=== PATIENT | female | born 1990 | race Caucasian/White ===

== ENCOUNTER 2018-11-26 05:51 | Inpatient (IN) | payer BC ==
[2018-11-26] MEDS ORDERED: Nalbuphine 20 MG/ML 1 ML Syringe IVPUSH PRN (06:18)
[2018-11-26] MEDS ORDERED: Ampicillin 2 GM in Sodium Chloride 0.9% 100 ML IV ONE (06:18)
[2018-11-26] MEDS ORDERED: Ondansetron 4 MG/2 ML SDV IVPUSH PRN ×2 (06:18→07:20)
[2018-11-26] MEDS ORDERED: Sodium Chloride 0.9% 10 ML Syringe FLUSH PRN (06:18)
[2018-11-26] MEDS ORDERED: Ampicillin 2 GM AdvVial IV ONE (06:21)
[2018-11-26] MEDS ORDERED: Sodium Chloride 0.9% 100 ML ONE (06:21)
--- NOTE | 2018-11-26 06:26 | PCM.LDHP ---
L&D History of Present Illness - General Date of Service: 11/26/18 Admit Problem/Dx: Patient Status Order with Admit Dx/Problem 11/26/18 06:18 Patient Status [ADT] Routine Admission Diagnosis/Problem Admission Diagnosis/Problem Normal labor Source of Information: Patient History Limitations: Reports: No Limitations - History of Present Illness Introduction:: Patient is a 28 y/o at 39 3/7 wks who presents in labor. Contractions started at about 0200 this AM. thinks on the drive down she maybe had a little leaking of fluid. - Related Data Allergies/Adverse Reactions: Allergies Allergy/AdvReac Type Severity Reaction Status Date / Time No Known Allergies Allergy Verified 08/23/14 05:00 Home Medications: Home Meds Vitamins. 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 : 4 Para: 1 LMP (Approximate): Hematologic History: Reports: Anticoagulation Therapy (On prophylactic Lovenox this ), Other (See Below) (DVT during 2014 ) - Past Surgical History HEENT Surgical History: Reports: Oral Surgery (tooth extraction) Female Surgical History: Reports: D&C Social & Family History - Tobacco Use Smoking Status *Q: Never Smoker - Alcohol Use Alcohol Use History: No - Recreational Drug Use Recreational Drug Use: No H&P Review of Systems - Review of Systems: Review Of Systems: See Below General: Reports: No Symptoms Pulmonary: Reports: No Symptoms Cardiovascular: Reports: No Symptoms Gastrointestinal: Reports: No Symptoms Genitourinary: Reports: No Symptoms Musculoskeletal: Reports: No Symptoms Neurological: Reports: No Symptoms L&D Exam - Exam Exam: See Below - OB Specific Contraction Intensity: Moderate Movement: Active Heart Tones: Present Heart Tones per Min: 135 Heart Rate (FHR) Variability: Moderate (6-25 bmp) Presentation: Vertex - Olguin Score Olguin Score Cervix Position: Posterior Olguin Score Consistency: Soft Olguin Score Effacement: 51-70% Olguin Score Dilation: 3-4 cm Olguin Score 's Station: -1 ,0 Olguin Score Total: 8 - Exam General: Alert, Oriented, Cooperative Lungs: Clear to Auscultation, Normal Respiratory Effort Cardiovascular: Regular Rate, Regular Rhythm GI/Abdominal Exam: Soft, Non-Tender Genitourinary: Normal external exam Extremities: Normal Inspection Skin: Warm, Dry, Intact - Problem List (1) 39 weeks gestation of SNOMED Code(s): 65520891 ICD Code: Z3A.39 - 39 WEEKS GESTATION OF Status: Acute Current Visit: Yes (2) History of deep vein thrombosis (DVT) during SNOMED Code(s): 39943105 ICD Code: Z86.718 - PERSONAL HISTORY OF OTHER VENOUS THROMBOSIS AND EMBOLISM ; Z87.59 - PERSONAL HISTORY OF COMP OF PREG, CHLDBRTH AND THE PUERP Status: Acute Current Visit: Yes (3) GBS (group B Streptococcus carrier), +RV culture, currently SNOMED Code(s): 1725847564221, 977886926, 1524508946173 ICD Code: O99.820 - STREPTOCOCCUS B CARRIER STATE COMPLICATING Status: Acute Current Visit: Yes Problem List Initiated/Reviewed/Updated: Yes Orders Last 24hrs: Active Orders 24 hr Category Date Time Status Patient Status [ADT] Routine ADT 11/26/18 06:18 Ordered Activity as Tolerated [RC] PFP Care 11/26/18 06:18 Ordered Communication Order [RC] ASDIRECTED Care 11/26/18 06:18 Ordered Heart Tones [RC] ASDIRECTED Care 11/26/18 06:18 Ordered Non Stress Test [RC] PER UNIT ROUTINE Care 11/26/18 06:18 Ordered Notify Provider [RC] PFP Care 11/26/18 06:18 Ordered Notify Provider [RC] PRN Care 11/26/18 06:18 Ordered Peripheral IV Care [RC] . DIRECTED Care 11/26/18 06:18 Ordered Vital Signs [RC] PER UNIT ROUTINE Care 11/26/18 06:18 Ordered Regular Diet [DIET] Diet 11/26/18 Breakfast Ordered CBC W/O DIFF,HEMOGRAM [HEME] Routine Lab 11/26/18 06:18 Ordered INR,PT,PROTHROMBIN TIME [COAG] Routine Lab 11/26/18 06:18 Ordered PTT,PARTIAL THROMBOPLSTIN TIME [COAG] Routine Lab 11/26/18 06:18 Ordered RAPID PLASMA REAGIN,RPR [CHEM] Routine Lab 11/26/18 06:18 Ordered TYPE AND SCREEN [BBK] Routine Lab 11/26/18 06:18 Ordered Ampicillin 1 gm Med 11/26/18 06:30 Ordered Sodium Chloride 0.9% [Normal Saline] 100 ml IV Q4H Ampicillin 2 gm Med 11/26/18 06:18 Ordered Sodium Chloride 0.9% [Normal Saline] 100 ml IV ONETIME Lactated Ringers [Ringers, Lactated] 1,000 ml Med 11/26/18 06:30 Ordered IV ASDIRECTED Nalbuphine [Nubain] Med 11/26/18 06:18 Ordered 10 mg IVPUSH Q2H PRN Ondansetron [Zofran] Med 11/26/18 06:18 Ordered 4 mg IVPUSH Q4H PRN Oxytocin/Lactated Ringers [Pitocin in LR 10 Units/1,000 Med 11/26/18 06:30 Ordered ML] 10 unit in 1,000 ml IV .CONTINUOUS Sodium Chloride 0.9% [Saline Flush] Med 11/26/18 06:18 Ordered 10 ml FLUSH ASDIRECTED PRN Electronic Heart Tones Ext w TOCO [WOMSER] Oth 11/26/18 06:18 Ordered Routine Electronic Heart Tones Internal [WOMSER] Per Unit Oth 11/26/18 06:18 Ordered Routine Peripheral IV Insertion Adult [OM.PC] Routine Oth 11/26/18 06:18 Ordered Resuscitation Status Routine Resus Stat 11/26/18 06:18 Ordered Medication Orders Ampicillin Sodium 2 gm/ Sodium (Chloride) 100 mls @ 200 mls/hr IV ONETIME ONE Stop: 11/26/18 06:47 Ampicillin Sodium 1 gm/ Sodium (Chloride) 100 mls @ 200 mls/hr IV Q4H IVORY Lactated Ringer's (Ringers, Lactated) 1,000 mls @ 100 mls/hr IV ASDIRECTED IVORY Oxytocin/Lactated Ringer's (Pitocin In Lr 10 Units/1,000 Ml) 10 unit in 1,000 mls @ 500 mls/hr IV .CONTINUOUS IVORY Nalbuphine HCl (Nubain) 10 mg IVPUSH Q2H PRN PRN Reason: pain Ondansetron HCl (Zofran) 4 mg IVPUSH Q4H PRN PRN Reason: Nausea/Vomiting Sodium Chloride (Saline Flush) 10 ml FLUSH ASDIRECTED PRN PRN Reason: Keep Vein Open Assessment/Plan Comment:: 28 y/o at 39 3/7 wks presents in labor * Labs on admission including PT/PTT * On prophylactic dose of Lovenox this (40 mg subcutaneous daily). Last injection at 2044 yesterday. Would be candidate for regional anesthesia 12 hours after last injection if desired * GBS positive will start ampicillin * Pain management per patient preference * Anticipate
[2018-11-26] MEDS ORDERED: Oxytocin/Lactated Ringers 10 UNIT/1,000 ML BAG IV SCH (06:30)
[2018-11-26] MEDS ORDERED: Lactated Ringers 1,000 ML IV SCH (06:30)
[2018-11-26] MEDS ORDERED: fentaNYL/Bupivacaine-NS 2 MCG/ML-0.125%/PF 100 ML Bag EPIDUR PRN (07:20)
[2018-11-26] MEDS ORDERED: fentaNYL 100 MCG/2 ML SDV EPIDUR PRN (07:20)
[2018-11-26] MEDS ORDERED: ePHEDrine 50 MG/ML SDV IVPUSH PRN (07:20)
--- NOTE | 2018-11-26 07:26 | PCM.PREANE ---
Preanesthetic Assessment - Anesthesia/Transfusion/Family Hx Anesthesia History: Prior Anesthesia Without Reaction Family History of Anesthesia Reaction: No Transfusion History: No Prior Transfusion(s) Intubation History: Unknown - Review of Systems Other: Reports: None (Currently on lovenox for past history of DVT with prior : last injection last evening at 2044.), Easy Bleeding, Easy Bruising - Physical Assessment NPO Status Date: 11/26/18 Pulse: 71 O2 Sat by Pulse Oximetry: 98 Respiratory Rate: 17 Blood Pressure: 107/56 Vital Signs: Last Vital Signs Temp Pulse Resp 17 11/26/18 06:13 BP 107/55 L 11/26/18 06:13 Pulse Ox 98 11/26/18 06:13 ASA Class: 2 Mental Status: Alert & Oriented x3 - Lab Values: Laboratory Last Values WBC 11.81 K/mm3 (3.98-10.04) H 11/26/18 06:30 RBC 4.09 M/mm3 (3.98-5.22) 11/26/18 06:30 Hgb 12.2 gm/L (11.2-15.7) 11/26/18 06:30 Hct 35.9 % (34.1-44.9) 11/26/18 06:30 MCV 87.8 fl (79.4-94.8) 11/26/18 06:30 MCH 29.8 pg (25.6-32.2) 11/26/18 06:30 MCHC 34.0 g/dl (32.2-35.5) 11/26/18 06:30 RDW Std Deviation 43.4 fL (36.4-46.3) 11/26/18 06:30 Plt Count 216 K/mm3 (182-369) 11/26/18 06:30 MPV 9.5 fl (9.4-12.3) 11/26/18 06:30 PT 9.6 SECONDS (9.5-12.1) 11/26/18 06:30 INR < 0.93 11/26/18 06:30 APTT 24 SECONDS (24-31) 11/26/18 06:30 Above labs reviewed and noted and within acceptable ranges to proceed with epidural if desired. 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 1 tab PO DAILY 05/01/14 [History] Enoxaparin [Lovenox] 120 mg SUBCUT DAILY #14 syringe 08/25/14 [Rx] - CURRENT (IN HOUSE) MEDS Current Meds: Current Medications Ephedrine Sulfate (Ephedrine Sulfate) 5 mg IVPUSH ASDIRECTED PRN PRN Reason: Hypotension Stop: 11/26/18 23:00 Fentanyl (Sublimaze) 100 mcg EPIDUR Q3H PRN PRN Reason: Pain Stop: 11/26/18 23:00 Fentanyl/Bupivacaine HCl (Sjimwuuj-Mxttf-Rv 2 Mcg/Ml-0.125%) 100 ml EPIDUR ASDIRECTED PRN PRN Reason: Pain Stop: 11/26/18 23:00 Ampicillin Sodium 1 gm/ Sodium (Chloride) 100 mls @ 200 mls/hr IV Q4H IVORY Lactated Ringer's (Ringers, Lactated) 1,000 mls @ 100 mls/hr IV ASDIRECTED IVORY Last Admin: 11/26/18 06:39 Dose: 100 mls/hr Oxytocin/Lactated Ringer's (Pitocin In Lr 10 Units/1,000 Ml) 10 unit in 1,000 mls @ 500 mls/hr IV .CONTINUOUS IVORY Phenylephrine HCl 1 mg/ Sodium (Chloride) 10.1 mls @ 1 mls/sec IV TITRATE IVORY; Protocol Stop: 11/26/18 23:00 Nalbuphine HCl (Nubain) 10 mg IVPUSH Q2H PRN PRN Reason: pain Ondansetron HCl (Zofran) 4 mg IVPUSH Q4H PRN PRN Reason: Nausea/Vomiting Ondansetron HCl (Zofran) 4 mg IVPUSH ONETIME PRN PRN Reason: Nausea/Vomiting Sodium Chloride (Saline Flush) 10 ml FLUSH ASDIRECTED PRN PRN Reason: Keep Vein Open Discontinued Medications Ampicillin Sodium (Ampicillin) Confirm Administered Dose 2 gm IV .[employer] ONE Stop: 11/26/18 06:22 Last Admin: 11/26/18 06:41 Dose: Not Given Ampicillin Sodium 2 gm/ Sodium (Chloride) 100 mls @ 200 mls/hr IV ONETIME ONE Stop: 11/26/18 06:47 Last Admin: 11/26/18 06:39 Dose: 200 mls/hr Sodium Chloride (Normal Saline) Confirm Administered Dose 100 mls @ as directed .ROUTE .[employer] ONE Stop: 11/26/18 06:22 Last Admin: 11/26/18 06:41 Dose: Not Given
[2018-11-26] MEDS ORDERED: Phenylephrine 1 MG in Sodium Chloride 0.9% 10 ML IV SCH (07:30)
[2018-11-26] MEDS ORDERED: Ampicillin 1 GM in Sodium Chloride 0.9% 100 ML IV SCH ×2 (10:30→18:30)
--- NOTE | 2018-11-26 12:13 | PCM.DEL ---
L & D Note - General Info Date of Service: 11/26/18 - Delivery Note Labor: Spontaneous Delivery Outcome: Livebirth Delivery Method: Spontaneous Vaginal Delivery-Single Delivery Mode: Spontaneous Presentation: Left Occiput Anterior (JOANIE) Nuchal Cord: None Anesthesia Type: None Amniotic Fluid Description: Clear Episiotomy Type: None Laceration: 1st Degree, Perineal Suture type: Vicryl Suture size: 2-0 Placenta: Intact, Spontaneous Cord: 3 Vessels Estimated Blood Loss: 300 Resuscitation Needed: Yes [place]: Bulb Syringe, Stimulated, Warmed, Sarah Used, Warmer Used Delivery Comments (Free Text/Narrative):: Patient found to be complete and began pushing. With maternal pushing effort head delivered from an JOANIE presentation. No nuchal cord present. With gentle downward traction the shoulders and body delivered. Infant placed on maternal abdomen. Cord clamped and cut. Cord blood obtained. Placenta allowed time to separate and expelled intact. Inspection of the perineum showed a small 1st degree laceration which was repaired with a 2-0 vicryl - General Info Date of Service: 11/27/18 - Patient Data Vitals - Most Recent: Last Vital Signs Temp Pulse 71 11/26/18 07:25 Resp 17 11/26/18 07:25 BP 107/56 L 11/26/18 07:25 Pulse Ox 98 11/26/18 07:25 Weight - Most Recent: 84.323 kg I&O - Last 24 Hours: Intake & Output 11/25/18 11/26/18 11/26/18 22:59 06:59 14:59 Intake Total 120 Balance 120 Lab Results Last 24 Hours: Laboratory Results - last 24 hr 11/26/18 11/26/18 11/26/18 Range/Units 06:30 06:30 06:30 WBC 11.81 H (3.98-10.04) K/mm3 RBC 4.09 (3.98-5.22) M/mm3 Hgb 12.2 (11.2-15.7) gm/L Hct 35.9 (34.1-44.9) % MCV 87.8 (79.4-94.8) fl MCH 29.8 (25.6-32.2) pg MCHC 34.0 (32.2-35.5) g/dl RDW Std Deviation 43.4 (36.4-46.3) fL Plt Count 216 (182-369) K/mm3 MPV 9.5 (9.4-12.3) fl PT 9.6 (9.5-12.1) SECONDS INR < 0.93 APTT 24 (24-31) SECONDS Blood Type B POSITIVE Gel Antibody Screen Negative Med Orders - Current: Current Medications Ephedrine Sulfate (Ephedrine Sulfate) 5 mg IVPUSH ASDIRECTED PRN PRN Reason: Hypotension Stop: 11/26/18 23:00 Fentanyl (Sublimaze) 100 mcg EPIDUR Q3H PRN PRN Reason: Pain Stop: 11/26/18 23:00 Fentanyl/Bupivacaine HCl (Duktoyje-Smjmj-Uh 2 Mcg/Ml-0.125%) 100 ml EPIDUR ASDIRECTED PRN PRN Reason: Pain Stop: 11/26/18 23:00 Ampicillin Sodium 1 gm/ Sodium (Chloride) 100 mls @ 200 mls/hr IV Q4H IVORY Stop: 11/26/18 15:30 Last Admin: 11/26/18 10:17 Dose: 200 mls/hr Lactated Ringer's (Ringers, Lactated) 1,000 mls @ 100 mls/hr IV ASDIRECTED IVORY Last Admin: 11/26/18 06:39 Dose: 100 mls/hr Oxytocin/Lactated Ringer's (Pitocin In Lr 10 Units/1,000 Ml) 10 unit in 1,000 mls @ 500 mls/hr IV .CONTINUOUS IVORY Phenylephrine HCl 1 mg/ Sodium (Chloride) 10.1 mls @ 1 mls/sec IV TITRATE IVORY; Protocol Stop: 11/26/18 23:00 Ampicillin Sodium 1 gm/ Sodium (Chloride) 100 mls @ 200 mls/hr IV Q4H IVORY Nalbuphine HCl (Nubain) 10 mg IVPUSH Q2H PRN PRN Reason: pain Last Admin: 11/26/18 10:14 Dose: 10 mg Ondansetron HCl (Zofran) 4 mg IVPUSH Q4H PRN PRN Reason: Nausea/Vomiting Ondansetron HCl (Zofran) 4 mg IVPUSH ONETIME PRN PRN Reason: Nausea/Vomiting Stop: 11/26/18 23:00 Sodium Chloride (Saline Flush) 10 ml FLUSH ASDIRECTED PRN PRN Reason: Keep Vein Open Discontinued Medications Ampicillin Sodium (Ampicillin) Confirm Administered Dose 2 gm IV .STK-MED ONE Stop: 11/26/18 06:22 Last Admin: 11/26/18 06:41 Dose: Not Given Ampicillin Sodium 2 gm/ Sodium (Chloride) 100 mls @ 200 mls/hr IV ONETIME ONE Stop: 11/26/18 06:47 Last Admin: 11/26/18 06:39 Dose: 200 mls/hr Sodium Chloride (Normal Saline) Confirm Administered Dose 100 mls @ as directed .ROUTE .STK-MED ONE Stop: 11/26/18 06:22 Last Admin: 11/26/18 06:41 Dose: Not Given - Problem List & Annotations (1) 39 weeks gestation of SNOMED Code(s): 52405313 Code(s): Z3A.39 - 39 WEEKS GESTATION OF Status: Acute Current Visit: Yes (2) History of deep vein thrombosis (DVT) during SNOMED Code(s): 81122351 Code(s): Z86.718 - PERSONAL HISTORY OF OTHER VENOUS THROMBOSIS AND EMBOLISM; Z87.59 - PERSONAL HISTORY OF COMP OF PREG, CHLDBRTH AND THE PUERP Status: Acute Current Visit: Yes (3) GBS (group B Streptococcus carrier), +RV culture, currently SNOMED Code(s): 7226634633746, 791503381, 6839165948610 Code(s): O99.820 - STREPTOCOCCUS B CARRIER STATE COMPLICATING Status: Acute Current Visit: Yes (4) Vaginal delivery SNOMED Code(s): 649805160 Code(s): O80 - ENCOUNTER FOR FULL-TERM UNCOMPLICATED DELIVERY Status: Acute Current Visit: No - Problem List Review Problem List Initiated/Reviewed/Updated: Yes - My Orders Last 24 Hours: My Active Orders 11/26/18 06:18 Patient Status [ADT] Routine Activity as Tolerated [RC] PFP Communication Order [RC] ASDIRECTED Heart Tones [RC] ASDIRECTED Non Stress Test [RC] PER UNIT ROUTINE Notify Provider [RC] PFP Notify Provider [RC] PRN Vital Signs [RC] PER UNIT ROUTINE Nalbuphine [Nubain] 10 mg IVPUSH Q2H PRN Ondansetron [Zofran] 4 mg IVPUSH Q4H PRN Sodium Chloride 0.9% [Saline Flush] 10 ml FLUSH ASDIRECTED PRN Electronic Heart Tones Ext w TOCO [WOMSER] Routine Electronic Heart Tones Internal [WOMSER] Per Unit Routine Peripheral IV Insertion Adult [OM.PC] Routine Resuscitation Status Routine 11/26/18 06:30 RAPID PLASMA REAGIN,RPR [CHEM] Routine Lactated Ringers [Ringers, Lactated] 1,000 ml IV ASDIRECTED Oxytocin/Lactated Ringers [Pitocin in LR 10 Units/1,000 ML] 10 unit in 1,000 ml IV .CONTINUOUS 11/26/18 09:52 PATIENT RETYPE [BBK] Routine 11/26/18 10:30 Ampicillin 1 gm Sodium Chloride 0.9% [Normal Saline] 100 ml IV Q4H 11/26/18 18:30 Ampicillin 1 gm Sodium Chloride 0.9% [Normal Saline] 100 ml IV Q4H 11/26/18 Breakfast Regular Diet [DIET] - Assessment Assessment:: 28 y/o G4 now P2022 PPD#0 from at 39 3/7 wks - Plan Plan:: * Routine cares * Encourage breast feeding * Will start prophylactic lovenox tomorrow AM * Discharge home in 1-2 days
[2018-11-26] MEDS ORDERED: Witch Hazel Medicated Pads 40/Jar TOP PRN (12:46)
[2018-11-26] MEDS ORDERED: Docusate Sodium 100 MG Cap PO PRN (12:46)
[2018-11-26] MEDS ORDERED: Acetaminophen 325 MG Tab PO PRN (12:46)
[2018-11-26] MEDS ORDERED: Lanolin 100% Cream 7 GM Tube TOP PRN (12:46)
[2018-11-26] MEDS ORDERED: Benzocaine/Menthol 20%-0.5% Spray 56 GM Canister TOP PRN (12:46)
[2018-11-26] MEDS: Ibuprofen 600 MG Tab PO PRN ×2 (16:23→21:56)
[2018-11-27] MEDS: Ibuprofen 600 MG Tab PO PRN ×2 (03:44→10:44)
--- NOTE | 2018-11-27 07:18 | PCM.PNPP ---
- General Info Date of Service: 11/27/18 Functional Status: Reports: Pain Controlled, Tolerating Diet, Ambulating, Urinating - Review of Systems General: Reports: No Symptoms Pulmonary: Reports: No Symptoms Cardiovascular: Reports: No Symptoms Gastrointestinal: Reports: No Symptoms Genitourinary: Reports: No Symptoms Musculoskeletal: Reports: No Symptoms - Patient Data Vital Signs - Most Recent: Last Vital Signs Temp 36.5 C 11/27/18 03:42 Pulse 69 11/27/18 03:42 Resp 15 11/27/18 03:42 BP 110/53 L 11/27/18 03:42 Pulse Ox 99 11/27/18 03:42 Weight - Most Recent: 84.323 kg Lab Results - Last 24 Hours: Laboratory Results - last 24 hr 11/26/18 11/26/18 11/26/18 Range/Units 06:30 06:30 06:30 PT 9.6 (9.5-12.1) SECONDS INR < 0.93 APTT 24 (24-31) SECONDS RPR Non-reactive (NONREACTIVE) Blood Type B POSITIVE Gel Antibody Screen Negative Med Orders - Current: Current Medications Acetaminophen (Tylenol) 650 mg PO Q4H PRN PRN Reason: mild pain or fever Benzocaine/Menthol (Dermoplast Pain Relief [place]) 0 gm TOP ASDIRECTED PRN PRN Reason: Perineal Comfort Measure Last Admin: 11/26/18 13:47 Dose: 1 can Docusate Sodium (Colace) 100 mg PO BID PRN PRN Reason: Constipation Emollient Ointment (Lansinoh Hpa) 0 gm TOP ASDIRECTED PRN PRN Reason: Sore Nipples Enoxaparin Sodium (Lovenox) 40 mg SUBCUT ONETIME ONE Stop: 11/27/18 08:01 Ibuprofen (Motrin) 600 mg PO Q6H PRN PRN Reason: Mild pain or fever Last Admin: 11/27/18 03:44 Dose: 600 mg Witch Becki (Tucks) 1 pad TOP ASDIRECTED PRN PRN Reason: Perineal Comfort Measure Last Admin: 11/26/18 13:47 Dose: 1 container Discontinued Medications Ampicillin Sodium (Ampicillin) Confirm Administered Dose 2 gm IV .STK-MED ONE Stop: 11/26/18 06:22 Last Admin: 11/26/18 06:41 Dose: Not Given Ephedrine Sulfate (Ephedrine Sulfate) 5 mg IVPUSH ASDIRECTED PRN PRN Reason: Hypotension Stop: 11/26/18 23:00 Fentanyl (Sublimaze) 100 mcg EPIDUR Q3H PRN PRN Reason: Pain Stop: 11/26/18 23:00 Fentanyl/Bupivacaine HCl (Urxoxfed-Fujpb-Yn 2 Mcg/Ml-0.125%) 100 ml EPIDUR ASDIRECTED PRN PRN Reason: Pain Stop: 11/26/18 23:00 Ampicillin Sodium 2 gm/ Sodium (Chloride) 100 mls @ 200 mls/hr IV ONETIME ONE Stop: 11/26/18 06:47 Last Admin: 11/26/18 06:39 Dose: 200 mls/hr Ampicillin Sodium 1 gm/ Sodium (Chloride) 100 mls @ 200 mls/hr IV Q4H IVORY Stop: 11/26/18 15:30 Last Admin: 11/26/18 10:17 Dose: 200 mls/hr Lactated Ringer's (Ringers, Lactated) 1,000 mls @ 100 mls/hr IV ASDIRECTED IVORY Last Admin: 11/26/18 06:39 Dose: 100 mls/hr Oxytocin/Lactated Ringer's (Pitocin In Lr 10 Units/1,000 Ml) 10 unit in 1,000 mls @ 500 mls/hr IV .CONTINUOUS IVORY Last Admin: 11/26/18 12:15 Dose: 500 mls/hr Sodium Chloride (Normal Saline) Confirm Administered Dose 100 mls @ as directed .ROUTE .STK-MED ONE Stop: 11/26/18 06:22 Last Admin: 11/26/18 06:41 Dose: Not Given Phenylephrine HCl 1 mg/ Sodium (Chloride) 10.1 mls @ 1 mls/sec IV TITRATE IVORY; Protocol Stop: 11/26/18 23:00 Ampicillin Sodium 1 gm/ Sodium (Chloride) 100 mls @ 200 mls/hr IV Q4H IVORY Nalbuphine HCl (Nubain) 10 mg IVPUSH Q2H PRN PRN Reason: pain Last Admin: 11/26/18 10:14 Dose: 10 mg Ondansetron HCl (Zofran) 4 mg IVPUSH Q4H PRN PRN Reason: Nausea/Vomiting Ondansetron HCl (Zofran) 4 mg IVPUSH ONETIME PRN PRN Reason: Nausea/Vomiting Stop: 11/26/18 23:00 Sodium Chloride (Saline Flush) 10 ml FLUSH ASDIRECTED PRN PRN Reason: Keep Vein Open - Interaction Infant Disposition, : [place] in Room with Family Infant Interaction: Holding Feeding: Breastfed ; Nursed Well Support Person: - Recovery Exam Fundal Tone: Firm Fundal Level: 1 Fingerbreadths Below Umbilicus Fundal Placement: Midline Lochia Amount: Small Lochia Color: Rubra/Red Perineum Description: Other (see below) Other Perinuem Description: 1st degree with repair Episiotomy/Laceration: Approximated Bladder Status: Voiding Urinary Elimination: Voided - Exam General: Alert, Oriented, Cooperative GI/Abdominal Exam: Soft, Non-Tender Extremities: Normal Inspection Skin: Warm, Dry, Intact - Problem List & Annotations (1) 39 weeks gestation of SNOMED Code(s): 40423641 Code(s): Z3A.39 - 39 WEEKS GESTATION OF Status: Acute Current Visit: Yes (2) History of deep vein thrombosis (DVT) during SNOMED Code(s): 17180460 Code(s): Z86.718 - PERSONAL HISTORY OF OTHER VENOUS THROMBOSIS AND EMBOLISM; Z87.59 - PERSONAL HISTORY OF COMP OF PREG, CHLDBRTH AND THE PUERP Status: Acute Current Visit: Yes (3) GBS (group B Streptococcus carrier), +RV culture, currently SNOMED Code(s): 3583078757690, 363244428, 6335050220401 Code(s): O99.820 - STREPTOCOCCUS B CARRIER STATE COMPLICATING Status: Acute Current Visit: Yes (4) Vaginal delivery SNOMED Code(s): 829695109 Code(s): O80 - ENCOUNTER FOR FULL-TERM UNCOMPLICATED DELIVERY Status: Acute Current Visit: No - Problem List Review Problem List Initiated/Reviewed/Updated: Yes - My Orders Last 24 Hours: My Active Orders 11/26/18 12:46 Activity as Tolerated [RC] PER UNIT ROUTINE Vital Signs [RC] 09,15,21,03 Acetaminophen [Tylenol] 650 mg PO Q4H PRN Benzocaine/Menthol [Dermoplast Pain Relief [place]] See Dose Instructions TOP ASDIRECTED PRN Docusate Sodium [Colace] 100 mg PO BID PRN Ibuprofen [Motrin] 600 mg PO Q6H PRN Lanolin [Lansinoh HPA] See Dose Instructions TOP ASDIRECTED PRN Witch Becki [Tucks] 1 pad TOP ASDIRECTED PRN Assess Lochia [WOMSER] Per Unit Routine Assess Uterine Involution [WOMSER] Per Unit Routine Breast Pump [WOMSER] Per Unit Routine Heat Therapy [OM.PC] PRN Ice Therapy [OM.PC] Per Unit Routine Perineal Care [OM.PC] Per Unit Routine Peripheral IV Discontinue [OM.PC] Routine Sitz Bath [OM.PC] Per Unit Routine 11/26/18 Dinner Regular Diet [DIET] 11/27/18 08:00 Enoxaparin [Lovenox] 40 mg SUBCUT ONETIME ONE 11/27/18 12:46 Heat Therapy [OM.PC] PRN - Assessment Assessment:: PPD#1 - Plan Plan:: * Routine cares * Breast feeding * Lovenox to start this AM and continue 6 weeks * Discharge today per patient preference
[2018-11-27] MEDS ORDERED: Enoxaparin 40 MG/0.4 ML Syringe SUBCUT ONE (08:00)
[2018-11-27 08:47] VITALS: BP 108/69
--- NOTE | 2018-11-27 10:19 | PCM.DCSUM1 ---
Discharge Summary - Discharge Data Discharge Date: 11/27/18 Discharge Disposition: Home, Self-Care 01 Condition: Good - Discharge Diagnosis/Problem(s) (1) 39 weeks gestation of SNOMED Code(s): 22045055 ICD Code: Z3A.39 - 39 WEEKS GESTATION OF Status: Acute Current Visit: Yes (2) History of deep vein thrombosis (DVT) during SNOMED Code(s): 61312542 ICD Code: Z86.718 - PERSONAL HISTORY OF OTHER VENOUS THROMBOSIS AND EMBOLISM ; Z87.59 - PERSONAL HISTORY OF COMP OF PREG, CHLDBRTH AND THE PUERP Status: Acute Current Visit: Yes (3) GBS (group B Streptococcus carrier), +RV culture, currently SNOMED Code(s): 8246336015056, 721801399, 9501335057134 ICD Code: O99.820 - STREPTOCOCCUS B CARRIER STATE COMPLICATING Status: Acute Current Visit: Yes (4) Vaginal delivery SNOMED Code(s): 389569702 ICD Code: O80 - ENCOUNTER FOR FULL-TERM UNCOMPLICATED DELIVERY Status: Acute Current Visit: No - Patient Summary/Data Complications: None Consults: None Recommended Follow-up Testing/Procedures: Follow up in 3 weeks for check Hospital Course: 28 y/o at 39 3/7 wks who presented in labor. She progressed well to complete dilation and underwent an uncomplicated . See delivery note for full details. she did well and was discharged home on PPD#1 - Patient Instructions Diet: Regular Diet as Tolerated Activity: As Tolerated Activity, Other: Pelvic Rest for 6 weeks Driving: May Drive Today Showering/Bathing: May Shower Showering/Bathing, Other: May Bathe Notify Provider of: Fever, Increased Pain, Swelling and Redness, Drainage, Nausea and/or Vomiting - Discharge Plan *PRESCRIPTION DRUG MONITORING PROGRAM REVIEWED*: Not Applicable *COPY OF PRESCRIPTION DRUG MONITORING REPORT IN PATIENT CHRIS: Not Applicable Prescriptions/Med Rec: Enoxaparin [Lovenox] 40 mg SUBCUT DAILY #42 syringe Home Medications: Home Meds Docusate Sodium [Colace] 100 mg PO BID PRN cap 11/27/18 [Rx] Enoxaparin [Lovenox] 40 mg SUBCUT DAILY #42 syringe 11/27/18 [Rx] Ibuprofen [Motrin] 600 mg PO Q6H PRN tablet 11/27/18 [Rx] Referrals: Daniela Flores MD [Primary Care Provider] - - Discharge Summary/Plan Comment DC Time >30 min.: No - Patient Data Vitals - Most Recent: Last Vital Signs Temp 37.2 C 11/27/18 07:38 Pulse 70 11/27/18 07:38 Resp 16 11/27/18 07:38 BP 108/69 11/27/18 07:38 Pulse Ox 97 11/27/18 07:38 Weight - Most Recent: 84.323 kg Lab Results - Last 24 hrs: Laboratory Results - last 24 hr 11/26/18 Range/Units 06:30 RPR Non-reactive (NONREACTIVE) Med Orders - Current: Current Medications Acetaminophen (Tylenol) 650 mg PO Q4H PRN PRN Reason: mild pain or fever Benzocaine/Menthol (Dermoplast Pain Relief [place]) 0 gm TOP ASDIRECTED PRN PRN Reason: Perineal Comfort Measure Last Admin: 11/26/18 13:47 Dose: 1 can Docusate Sodium (Colace) 100 mg PO BID PRN PRN Reason: Constipation Emollient Ointment (Lansinoh Hpa) 0 gm TOP ASDIRECTED PRN PRN Reason: Sore Nipples Ibuprofen (Motrin) 600 mg PO Q6H PRN PRN Reason: Mild pain or fever Last Admin: 11/27/18 03:44 Dose: 600 mg Witch Becki (Tucks) 1 pad TOP ASDIRECTED PRN PRN Reason: Perineal Comfort Measure Last Admin: 11/26/18 13:47 Dose: 1 container Discontinued Medications Ampicillin Sodium (Ampicillin) Confirm Administered Dose 2 gm IV .STK-MED ONE Stop: 11/26/18 06:22 Last Admin: 11/26/18 06:41 Dose: Not Given Enoxaparin Sodium (Lovenox) 40 mg SUBCUT ONETIME ONE Stop: 11/27/18 08:01 Last Admin: 11/27/18 08:02 Dose: 40 mg Ephedrine Sulfate (Ephedrine Sulfate) 5 mg IVPUSH ASDIRECTED PRN PRN Reason: Hypotension Stop: 11/26/18 23:00 Fentanyl (Sublimaze) 100 mcg EPIDUR Q3H PRN PRN Reason: Pain Stop: 11/26/18 23:00 Fentanyl/Bupivacaine HCl (Ixxjctxj-Rwapx-Ce 2 Mcg/Ml-0.125%) 100 ml EPIDUR ASDIRECTED PRN PRN Reason: Pain Stop: 11/26/18 23:00 Ampicillin Sodium 2 gm/ Sodium (Chloride) 100 mls @ 200 mls/hr IV ONETIME ONE Stop: 11/26/18 06:47 Last Admin: 11/26/18 06:39 Dose: 200 mls/hr Ampicillin Sodium 1 gm/ Sodium (Chloride) 100 mls @ 200 mls/hr IV Q4H IVORY Stop: 11/26/18 15:30 Last Admin: 11/26/18 10:17 Dose: 200 mls/hr Lactated Ringer's (Ringers, Lactated) 1,000 mls @ 100 mls/hr IV ASDIRECTED IVORY Last Admin: 11/26/18 06:39 Dose: 100 mls/hr Oxytocin/Lactated Ringer's (Pitocin In Lr 10 Units/1,000 Ml) 10 unit in 1,000 mls @ 500 mls/hr IV .CONTINUOUS IVORY Last Admin: 11/26/18 12:15 Dose: 500 mls/hr Sodium Chloride (Normal Saline) Confirm Administered Dose 100 mls @ as directed .ROUTE .STK-MED ONE Stop: 11/26/18 06:22 Last Admin: 11/26/18 06:41 Dose: Not Given Phenylephrine HCl 1 mg/ Sodium (Chloride) 10.1 mls @ 1 mls/sec IV TITRATE IVORY; Protocol Stop: 11/26/18 23:00 Ampicillin Sodium 1 gm/ Sodium (Chloride) 100 mls @ 200 mls/hr IV Q4H [facility] Nalbuphine HCl (Nubain) 10 mg IVPUSH Q2H PRN PRN Reason: pain Last Admin: 11/26/18 10:14 Dose: 10 mg Ondansetron HCl (Zofran) 4 mg IVPUSH Q4H PRN PRN Reason: Nausea/Vomiting Ondansetron HCl (Zofran) 4 mg IVPUSH ONETIME PRN PRN Reason: Nausea/Vomiting Stop: 11/26/18 23:00 Sodium Chloride (Saline Flush) 10 ml FLUSH ASDIRECTED PRN PRN Reason: Keep Vein Open
== END 2018-11-27 14:27 | disposition home or self-care (01) | DRG 560 ==
LOC: JD.OBCHECK 05:51 → JD.OB 06:18 → OBSVTOIN 11:53 → JD.OB 11:54
PROVIDERS: ADMIT Obstetrics & Gynecology; ATTEND Obstetrics & Gynecology
PROC: 10E0XZZ Delivery of Products of Conception, External Approach (ICD-10-PCS; principal; 2018-11-26)
PROC: 0HQ9XZZ Repair Perineum Skin, External Approach (ICD-10-PCS; 2018-11-26)
DX: O99.824 Streptococcus B carrier state complicating childbirth (principal); O70.0 First degree perineal laceration during delivery; Z3A.39 39 weeks gestation of pregnancy; Z37.0 Single live birth
CPT/HCPCS: 36415; 59025; 59409; 85027; 85610; 85730; 86592; 86850; 86900; 86901; A9270-GY; J0290; J1650; J2300; J2590; J7030; J7120